=== PATIENT | female | born 1995 | race Caucasian/White ===

== ENCOUNTER 2019-02-10 08:35 | Emergency (ER) | payer OTHER ==
[2019-02-10 08:40] VITALS: BMI 34.0
[2019-02-10] MEDS ORDERED: morphine SULFATE 4 MG/ML VIAL ONE (08:43)
[2019-02-10] MEDS ORDERED: morphine CARPU-JECT 4 MG/1 ML DISP.SYRIN IVPUSH ONE (08:44)
--- NOTE | 2019-02-10 08:46 | PDOC ---
Attending Attestation - Resident Resident Name: Jeniffer Barraza - ED Attending Attestation I have performed the following: I have examined & evaluated the patient, The case was reviewed & discussed with the resident, I agree w/resident's findings & plan, Exceptions are as noted - HPI HPI: 02/10/19 08:45 23y F hx of sleeve gastrectomy, sp medical approx 3 weeks ago presents with complaint sudden onset of sharp, 10/10 R lower abd pain associated iwth nausea approx 1 hr ago - denies any prior history of similar pain, denes any vaginal bleeding, dysuria, hematuria, back pain, cp, sob, feverchills. endorses nausea without vomiting. pt unable to tell me much about her ab or her - states it was 'very early'. presents with R adnexal pain jair tis cramping in nautre, 03/15 - Physicial Exam PE: 02/10/19 09:33 GENERAL: The patient is awake, alert, and fully oriented, in pain, rolling around in discomfort. HEAD: Normocephalic, atraumatic. EYES: extraocular movements intact, sclera anicteric, conjunctiva clear. ENT: Normal voice, Moist mucous membranes. NECK: Normal range of motion, supple LUNGS: Breath sounds equal, clear to auscultation bilaterally. No wheezes, no rhonchi, no rales. HEART: Regular rate and rhythm, normal S1 and S2 without murmur, rub or gallop. ABDOMEN: no rebound/guarding, +focal ttp to RLQ/adnexa, no cva tenderness EXTREMITIES: Normal range of motion, no edema. NEUROLOGICAL: No facial assymetry, Normal speech, PSYCH: Normal mood, normal affect. SKIN: Warm, Dry, normal turgor, - Medical Decision Making 02/10/19 09:36 ddx - ectompic/failed medical ab, appendicitis, kidney stone, gall stone, ovarian cyst will obtain labs morphine for pain fluids will reassess, anticiate imaging 02/10/19 16:26 pts labs reviewed US noted for ovarian cyst, with free fluid, possible ruptured cyst [facility] - pt had IUP documented at 7 weeks - no IUP , likely resolved medical ab - UA suggestive of UTI - pt was dc without abx - called pts cell phone at to see how she was doing and to see her preferred pharmacy for a rx, no response, left a voicemail.
[2019-02-10] MEDS ORDERED: SODIUM CHLORIDE 0.9% 500 ML INFUS.BAG IV ONE (08:59)
--- NOTE | 2019-02-10 09:03 | PDOC ---
History of Present Illness - General Chief Complaint: Pain, Acute Stated Complaint: ABD PAIN Time Seen by Provider: 02/10/19 08:38 - History of Present Illness Initial Comments: Cassidy Cuevas is a 23yo woman with a PMH of laparoscopic sleeve gastrectomy, recent medical 3wks ago who presents with acute onset of right lower abdominal pain about an hour ago. She states that the pain is sharp, constant, non-radiating, and 10/10 in intensity. She has nausea along with the pain. She has never experienced anything similar in the past. Ms Cuevas reports that her recent was "very early on" in the . It was an elective , and she never had any imaging to confirm the location of the . She reports that she had to miss her follow up appointment, and she has not been seen by her senior production supervisor since the . Ms Cuevas denies any vaginal bleeding, vaginal discharge, dysuria, fevers/chills or recent illness. Past History - Past Medical History Allergies/Adverse Reactions: Allergies Allergy/AdvReac Type Severity Reaction Status Date / Time No Known Allergies Allergy Verified 02/10/19 08:37 Home Medications: Ambulatory Orders NK [No Known Home Medication] 02/10/19 COPD: No Other medical history: DENIES - Surgical History Abdominal Surgery: Yes (GASTRIC BYPASS) - Immunization History Immunization Up to Date: Yes - Suicide/Smoking/Psychosocial Hx Smoking History: Current every day smoker Number of Cigarettes Smoked Daily: 10 Information on smoking cessation initiated: No Hx Alcohol Use: Yes Drug/Substance Use Hx: Yes Review of Systems - Review of Systems Comments:: General: No fevers, no chills, no weight or appetite change, no malaise HEENT: No changes in vision, no changes in hearing, no congestion, no sore throat CV: No chest pain, no palpitations, no LE edema Pulm: No SOB, no cough, no wheezing GI: No nausea or vomiting, no change in bowel habits, no melena : No frequency, no urgency, no dysuria. Recent , see HPI Musc: No back pain, no joint swelling, no recent injury Skin: No rash, no lesions, no erythema Endo: No excessive thirst, no heat/cold intolerance Heme: No unusual bruising or bleeding, no swollen glands Neuro: No syncope, no numbness/tingling, no focal weakness Vasc: No claudication Psych: No recent change in mood, no SI or HI *Physical Exam - Vital Signs Last Vital Signs Temp Pulse Resp BP Pulse Ox 97.5 F L 75 22 H 117/89 97 02/10/19 08:37 02/10/19 08:45 02/10/19 08:45 02/10/19 08:45 02/10/19 08:45 - Physical Exam Comments: General: Very uncomfortable, unable to remain still HEENT: Atraumatic, PERRL, EOMI, MMM, voice normal Cards: RRR, no murmur appreciated Pulm: Comfortable on room air, clear to auscultation bilaterally Abd: Significant TTP in RLQ w/ guarding. Minimal TTP on LLQ, suprapubic. Nondistended Ext: Atraumatic. No LE edema. ROM intact. WWP Skin: Normal color, no rashes or lesions Neuro: A&Ox3, CN grossly intact, normal speech, motor/sensory grossly intact and symmetric Psych: Mood appropriate to situation ED Treatment Course - LABORATORY CBC & Chemistry Diagram: 02/10/19 08:45 02/10/19 08:45 - RADIOLOGY Radiology Studies Ordered: Category Date Time Status TRANSVAGINAL ULTRASOUND US [US] Stat Ultrasound 02/10/19 08:59 Ordered - Medications Given in the ED: ED Medications Discontinued Medications Generic Name Dose Route Start Last Admin Trade Name Lolita PRN Reason Stop Dose Admin Morphine Sulfate 4 mg 02/10/19 08:44 02/10/19 08:50 Morphine Injection - IVPUSH 02/10/19 08:45 4 mg ONCE ONE Administration Medical Decision Making - Medical Decision Making 02/10/19 09:00 Cassidy Cuevas is a 23yo woman with a PMH of laparoscopic sleeve gastrectomy, recent medical 3wks ago who presents with acute onset of 10/10, sharp, constant right lower abdominal pain this morning. She endorses nausea but denies any additional symptoms including vaginal bleeding or discharge. - Concerning for unsuccessful medical , ectopic , ruptured ovarian cyst, torsion. Cannot exclude appendicitis, kidney stone. - CBC, CMP, UA, bHCG, coags, T&S - 4mg morphine 02/10/19 09:25 - Labs completed. No concerning abnormalities. bHCG 95 c/w recent - Pain returned following initial relief from morphine. IV acetaminophen ordered , may need additional morphine 02/10/19 09:28 - Pt screaming with pain. 0.5mg dilaudid ordered 02/10/19 10:57 - US completed. Shows two large, complex ovarian cysts (4 x 4 x 3.5cm and 3.5 x 3.2 x 3.2cm); appear hemorrhagic per radiology report. US also notes free right adnexal fluid. Normal endometrium measuring 7mm. Both arterial and venous flow noted. No left adnexal abnormalities - Paging gynecology for recs given positive bHCG and unknown gestation prior to . 02/10/19 11:26 - [facility] where pt had her . Termination was on 01/11/19. Patient had an IUP confirmed on US, estimated 7w5d by CRL (14.09mm) - Pt reporting returning pain currently. Will give toradol now. Most likely d/c home with gynecology follow up 02/10/19 12:25 - Patient feels improved, feels comfortable being discharged home - Discussed home care, return precautions, follow up at length. Patient states understanding and agreement Discussed with home care and follow up Jeniffer Barraza PGY2 *DC/Admit/Observation/Transfer Diagnosis at time of Disposition: Ruptured ovarian cyst - Discharge Dispostion Disposition: HOME Condition at time of disposition: Stable Decision to Admit order: No - Referrals Referrals: Marlon Major MD [Staff Physician] - [facility] [place] [Provider Group] - Patient Instructions Printed Discharge Instructions: DI for Ovarian Cyst Additional Instructions: Discharge Instructions: You were seen in the emergency department for right lower abdominal pain. You were found to have a ruptured ovarian cyst. Your pain should improve with time. You were found to have two additional ovarian cysts on the right ovary. It is possible that these could rupture in the future. Home Care and Follow Up: - You may use over the counter medications as needed for pain at home. 650- 1000mg acetaminophen (Tylenol) or 600mg ibuprofen (Motrin or Advil) can be used every 6-8 hours. If needed for continued pain, these medications may be alternated every 3-4 hours. For example, if you take ibuprofen at 9am, you may take acetaminophen at noon, ibuprofen at 3pm, etc. - It is strongly recommended that you take ibuprofen with food to help prevent stomach irritation. - Try using an ice pack for 20 minutes every hour or a heating pad for additional pain control. - Do not stop moving around. As much as you can tolerate, continue to do light exercise and stretching exercises. Increase your activity level as much as you can tolerate daily. - You have been given contact information for primary care and for gynecology. Call to schedule appointments for follow up within the next week or as soon as possible. - Seek immediate medical care if you have significant worsening of your symptoms , your pain returns, you have vaginal bleeding, you have any lightheadedness or shortness of breath, or you have any other medical emergency. - Post Discharge Activity
[2019-02-10 09:09] LABS: BASO % 0.6 % (0-2.0); EOS % 2.5 % (0-4.5); HEMATOCRIT 43.5 % (32.4-45.2); MCH 32.3 pg (25.7-33.7); MCHC 34.5 g/dl (32.0-36.0); MEAN CELL VOLUME 93.6 fl (80-96); MEAN PLT VOLUME 7.4 fl (7.5-11.1); MONO % 5.8 % (3.8-10.2); NEUT % 67.1 % (42.8-82.8); PLATELET COUNT 264 K/MM3 (134-434); RBC 4.65 M/mm3 (3.60-5.2); RDW 13.2 % (11.6-15.6); WHITE BLOOD COUNT 9.7 K/mm3 (4.0-10.0)
[2019-02-10] MEDS ORDERED: ACETAMINOPHEN 1000 MG/100 ML VIAL (NON FORMULARY) IVPB ONE (09:14)
[2019-02-10] MEDS ORDERED: morphine SULFATE 4 MG/ML VIAL IVPUSH ONE (09:15)
[2019-02-10 09:20] LABS: ALBUMIN 4.1 g/dl (3.4-5.0); BILIRUBIN,TOTAL 0.7 mg/dL (0.2-1); BLOOD UREA NITROGEN 13.3 mg/dL (7-18); CALCIUM 9.2 mg/dL (8.5-10.1); CREATININE 0.8 mg/dL (0.55-1.3); INR 1.03 (0.83-1.09); POTASSIUM 3.4 mmol/L (3.5-5.1); PROTHROMBIN TIME (PATIENT) 12.2 SEC (9.7-13.0); TOT PROT 7.6 g/dl (6.4-8.2)
[2019-02-10] MEDS ORDERED: ACETAMINOPHEN INJECTION 100 ML IVPB ONE (09:24)
[2019-02-10] MEDS ORDERED: HYDROmorphone HCL CARPU-JECT 2 MG/1 ML DISP.SYRIN IVPUSH ONE (09:26)
[2019-02-10] MEDS ORDERED: HYDROmorphone HCl 2 MG/ML VIAL ONE (09:28)
[2019-02-10] MEDS ORDERED: HYDROmorphone HCl 2 MG/ML VIAL IVPUSH ONE (09:45)
[2019-02-10 10:18] LABS: PH,URINE 8.5 (5.0-8.0); URINE APPEARANCE Clear; URINE BILIRUBIN Negative (NEGATIVE); URINE COLOR Yellow; URINE GLUCOSE (UA) Negative (NEGATIVE); URINE KETONE 2+ (NEGATIVE); URINE LEUK ESTERASE 1+ (NEGATIVE); URINE NITRITE Positive (NEGATIVE); URINE PROTEIN Trace (NEGATIVE); URINE UROBILINOGEN 0.2 mg/dL (0.2-1.0)
[2019-02-10 11:21] LABS: EPI CELLS 11.1 /HPF (0-5/HPF); HYALINE CASTS 15.05 /lpf (0-8); URINE BACTERIA 8605.7 /hpf (NEGATIVE); URINE RBC 7.2 /hpf (0-4); URINE WBC 11.3 /hpf (0-5)
[2019-02-10] MEDS ORDERED: KETOROLAC TROMETHAMINE 15 MG/ML VIAL IVPUSH ONE (11:26)
[2019-02-10] MEDS ORDERED: KETOROLAC TROMETHAMINE 15 MG/ML VIAL ONE (11:31)
[2019-02-10 12:10] VITALS: BP 128/67; PULSE 58; TEMP 98
== END 2019-02-10 12:40 | disposition home or self-care (01) ==
LOC: JER 08:35
PROC: 3E033NZ Introduction of Analgesics, Hypnotics, Sedatives into Peripheral Vein, Percutaneous Approach (ICD-10-PCS; principal; 2019-02-10)
PROC: 3E033NZ Introduction of Analgesics, Hypnotics, Sedatives into Peripheral Vein, Percutaneous Approach (ICD-10-PCS; 2019-02-10)
PROC: 3E033NZ Introduction of Analgesics, Hypnotics, Sedatives into Peripheral Vein, Percutaneous Approach (ICD-10-PCS; 2019-02-10)
PROC: 3E0333Z Introduction of Anti-inflammatory into Peripheral Vein, Percutaneous Approach (ICD-10-PCS; 2019-02-10)
DX: N83.201 Unspecified ovarian cyst, right side (principal); N39.0 Urinary tract infection, site not specified; Z98.890 Other specified postprocedural states
CPT/HCPCS: 36415; 76830-TC; 80053; 81003; 84702; 85025; 85610; 85730; 86850; 86900; 86901; 87086; 87186; 96374; 96375; 99283-25; J0131

== ENCOUNTER 2019-05-09 08:27 | Emergency (ER) | payer OTHER ==
[2019-05-09 08:34] VITALS: BP 130/63; PULSE 58; TEMP 98.1; BMI 32.7
--- NOTE | 2019-05-09 08:59 | PDOC ---
*Physical Exam - Vital Signs Last Vital Signs Temp Pulse Resp BP Pulse Ox 98.1 F 58 L 19 130/63 97 05/09/19 08:31 05/09/19 08:31 05/09/19 08:31 05/09/19 08:31 05/09/19 08:31 - Physical Exam 05/09/19 08:58 The patient was examined by [BRENT Loja] under my direct supervision. I personally evaluated the patient. I concur with the above findings and the plan of care. ED Treatment Course - LABORATORY CBC & Chemistry Diagram: 05/09/19 09:57 05/09/19 09:10 Discharge - Discharge Information Problems reviewed: Yes Clinical Impression/Diagnosis: Right sided abdominal pain Condition: Stable Disposition: HOME - Follow up/Referral Referrals: Juan Mccain MD [Primary Care Provider] - 2 Days - Patient Discharge Instructions Patient Printed Discharge Instructions: DI for Abdominal Pain-Adult Additional Instructions: Thank you for choosing [facility]. It was a pleasure taking care of you. There were no acute findings on your imaging Please continue follow-up with your doctor for further evaluation of your symptoms Return to the Emergency Department if your symptoms worsen or persist or have other concerning symptoms. - Post Discharge Activity
[2019-05-09] MEDS ORDERED: ACETAMINOPHEN 1000 MG/100 ML VIAL (NON FORMULARY) IVPB ONE (09:23)
[2019-05-09] MEDS ORDERED: ACETAMINOPHEN INJECTION 100 ML IVPB ONE (09:30)
[2019-05-09] MEDS ORDERED: ONDANSETRON 4 MG/2 ML VIAL IVPUSH ONE (09:58)
[2019-05-09 10:03] LABS: BASO % 0.9 % (0-2.0); EOS % 2.5 % (0-4.5); HEMATOCRIT 43.7 % (32.4-45.2); HEMOGLOBIN 15.2 GM/dL (10.7-15.3); LYMPH % 37.9 % (8-40); MCH 31.5 pg (25.7-33.7); MCHC 34.8 g/dl (32.0-36.0); MEAN CELL VOLUME 90.6 fl (80-96); MEAN PLT VOLUME 7.3 fl (7.5-11.1); MONO % 7.2 % (3.8-10.2); NEUT % 51.5 % (42.8-82.8); PLATELET COUNT 240 K/MM3 (134-434); RBC 4.82 M/mm3 (3.60-5.2); RDW 13.1 % (11.6-15.6); WHITE BLOOD COUNT 7.1 K/mm3 (4.0-10.0)
--- NOTE | 2019-05-09 10:05 | PDOC ---
History of Present Illness - General Chief Complaint: Pain Stated Complaint: ABD. PAIN Time Seen by Provider: 05/09/19 08:53 History Source: Patient Exam Limitations: No Limitations Past History - Past Medical History Allergies/Adverse Reactions: Allergies Allergy/AdvReac Type Severity Reaction Status Date / Time No Known Allergies Allergy Verified 05/09/19 08:33 COPD: No - Surgical History Abdominal Surgery: Yes (GASTRIC SLEEVE) - Immunization History Immunization Up to Date: Yes - Psycho Social/Smoking Cessation Hx Smoking History: Never smoked Number of Cigarettes Smoked Daily: 10 Information on smoking cessation initiated: No Hx Alcohol Use: No Drug/Substance Use Hx: No *Physical Exam - Vital Signs Last Vital Signs Temp Pulse Resp BP Pulse Ox 98.1 F 58 L 19 130/63 99 05/09/19 08:31 05/09/19 08:31 05/09/19 08:31 05/09/19 08:31 05/09/19 09:10 - Physical Exam General Appearance: No: Apparent Distress Respiratory/Chest: positive: Lungs Clear, Normal Breath Sounds. negative: Respiratory Distress Cardiovascular: positive: Regular Rhythm, Regular Rate, S1, S2. negative: Murmur Female Pelvic Exam: positive: adnexal tenderness (along R adnexa) Gastrointestinal/Abdominal: positive: Tender (along RUQ, RLQ), Soft. negative: Distended, Guarding, Rebound, Hernia, Mass Integumentary: positive: Normal Color Neurologic: positive: Alert ED Treatment Course - LABORATORY CBC & Chemistry Diagram: 05/09/19 09:57 05/09/19 09:10 - Medications Given in the ED: ED Medications Discontinued Medications Generic Name Dose Route Start Last Admin Trade Name Lolita PRN Reason Stop Dose Admin Acetaminophen 1,000 mg 05/09/19 09:23 05/09/19 09:30 Ofirmev Injection - IVPB 05/09/19 09:24 1,000 mg ONCE ONE Administration Medical Decision Making - Medical Decision Making 23 y/o F hx of gastric sleeve 2017 presents with R sided abdominal pain x 2 weeks along with nausea; had 2 episodes of emesis yesterday. States pain is similar to the pain she had when she was seen in the ED 02/2019, during which she was found to have R hemorrhagic ovarian cyst. Patient did not f/u with OB/ BUFFING AND SUEDING MACHINE OPERATOR regarding the cyst. Patient was also treated for UTI at that visit. Denies fever, sob, cp, diarrhea, urinary symptoms. Has not tried taking anything for pain. Saw her PCP 2 weeks ago who stated he was going to refer her to psychiatrist (unclear why). LNMP 04/17 R/O Consider cholecystitis, appendicitis, ovarian cyst, ovarian torsion Plan: Labs, IV Tylenol, Zofran, RUQ sono/transvaginal US If sonogram unremarkable, will consider CT A/P 05/09/19 10:02 Labs unremarkable RUQ sono negative pelvic US shows L hemorrhagic cyst with no evidence of torsion Patient reassessed and feeling better Patient noted to be sipping coffee On repeat exam, patient still with RLQ tenderness Will get CT A/P to r/o appendicitis 05/09/19 13:15 CT A/P with no acute findings Patient feeling better on reassessment, tolerating PO stable for dc 05/09/19 14:42 Discharge - Discharge Information Problems reviewed: Yes Clinical Impression/Diagnosis: Right sided abdominal pain Condition: Stable Disposition: HOME - Admission No - Additional Discharge Information Prescription Drug Monitoring Program (I-STOP) results: I-STOP not reviewed - Follow up/Referral Referrals: Juan Mccain MD [Primary Care Provider] - 2 Days - Patient Discharge Instructions Patient Printed Discharge Instructions: DI for Abdominal Pain-Adult Additional Instructions: Thank you for choosing [facility]. It was a pleasure taking care of you. There were no acute findings on your imaging Please continue follow-up with your doctor for further evaluation of your symptoms Return to the Emergency Department if your symptoms worsen or persist or have other concerning symptoms. - Post Discharge Activity
[2019-05-09 10:06] LABS: URINE APPEARANCE CLEAR; URINE BILIRUBIN NEGATIVE (NEGATIVE); URINE COLOR YELLOW; URINE GLUCOSE (UA) NEGATIVE (NEGATIVE); URINE KETONE NEGATIVE (NEGATIVE); URINE LEUK ESTERASE NEGATIVE (NEGATIVE); URINE NITRITE NEGATIVE (NEGATIVE); URINE PROTEIN NEGATIVE (NEGATIVE)
[2019-05-09] MEDS ORDERED: ONDANSETRON 4 MG/2 ML VIAL ONE (10:13)
[2019-05-09 10:29] LABS: ALBUMIN 4.2 g/dl (3.4-5.0); BILIRUBIN,TOTAL 0.6 mg/dL (0.2-1); BLOOD UREA NITROGEN 14.7 mg/dL (7-18); CREATININE 0.6 mg/dL (0.55-1.3); TOT PROT 7.3 g/dl (6.4-8.2)
== END 2019-05-09 14:53 | disposition home or self-care (01) ==
LOC: JER 08:27
PROC: 3E033GC Introduction of Other Therapeutic Substance into Peripheral Vein, Percutaneous Approach (ICD-10-PCS; principal; 2019-05-09)
DX: R10.9 Unspecified abdominal pain (principal); Z98.84 Bariatric surgery status; Z72.0 Tobacco use
CPT/HCPCS: 36415; 74177-TC; 76705-TC; 76830-TC; 80053; 81003; 84703; 85025; 96374; 96375; 99283-25; J0131; Q9967

== ENCOUNTER 2019-07-10 10:18 | Emergency (ER) | payer OTHER ==
[2019-07-10 10:36] VITALS: TEMP 98.1; BMI 30.2
[2019-07-10] MEDS ORDERED: METOCLOPRAMIDE HCL INJECTION 10 MG/2 ML VIAL IVPB ONE (11:17)
[2019-07-10] MEDS ORDERED: SODIUM CHLORIDE 1,000 ML IV STA (11:17)
[2019-07-10] MEDS ORDERED: FAMOTIDINE 20 MG/50 ML IVPB 20 MG/50 ML MG IVPB ONE ×2 (11:17→11:23)
[2019-07-10] MEDS ORDERED: METOCLOPRAMIDE HCL INJECTION 10 MG/2 ML VIAL ONE (11:23)
--- NOTE | 2019-07-10 11:35 | PDOC ---
History of Present Illness - General Chief Complaint: Nausea/Vomiting Stated Complaint: NAUSEA/VOMITING Time Seen by Provider: 07/10/19 10:57 History Source: Patient Exam Limitations: Clinical Condition - History of Present Illness Initial Comments: 07/10/19 11:48 Patient with past medical history of gastric sleeve over 2 years ago and last menstrual period of May 17 presented with complaint of nausea and vomiting in at 8 weeks . Patient reports seeing REPLANTING MACHINE CREWMAN to establish care over a week ago and told her OB about nausea and vomiting but nothing was done for. Patient report unable to keep any food down. Denies abdominal pain, vaginal bleeding, discharge, fever, chills. Patient has not taken anything for symptoms. Patient reported vomiting twice a day. Denies any other symptoms Is this a multiple visit Asthma Patient?: No Timing/Duration: other (2 weeks) Past History - Past Medical History Allergies/Adverse Reactions: Allergies Allergy/AdvReac Type Severity Reaction Status Date / Time No Known Allergies Allergy Verified 07/10/19 10:33 Home Medications: Ambulatory Orders Doxylamine Succinate/Vit B6 [Agustina Stevens 10-10 mg Tablet] 2 each PO HS PRN #30 tablet. 07/10/19 Famotidine [Pepcid -] 40 mg PO DAILY #7 tablet 07/10/19 95/Iron Fum/Folic/Dha [ + Dha Combo Pack] 1 each PO DAILY 07/10 COPD: No - Surgical History Abdominal Surgery: Yes (GASTRIC SLEEVE) - Immunization History Immunization Up to Date: Yes - Psycho Social/Smoking Cessation Hx Smoking History: Never smoked Number of Cigarettes Smoked Daily: 10 Hx Alcohol Use: No Drug/Substance Use Hx: No Review of Systems - Review of Systems Able to Perform ROS?: Yes Is the patient limited Swedish proficient: No Constitutional: No: Chills, Fever, Unintentional Wgt. Loss HEENTM: No: Symptoms Reported, See HPI, Eye Pain, Blurred Vision, Tearing, Recent change in vision, Double Vision, Cataracts, Ear Pain, Ocular Prothesis, Ear Discharge, Nose Pain, Nose Congestion, Tinnitus, Nose Bleeding, Hearing Loss , Throat Pain, Throat Swelling, Mouth Pain, Dental Problems, Difficulty Swallowing, Mouth Swelling, Other Respiratory: No: Symptoms reported, See HPI, Cough, Orthopnea, Shortness of Breath, SOB with Exertion, SOB at Rest, Stridor, Wheezing, Productive cough, Hemoptysis, Other Cardiac (ROS): No: Symptoms Reported, See HPI, Chest Pain, Edema, Irregular Heart Rate, Lightheadedness, Palpitations, Syncope, Chest Tightness, Other ABD/GI: Yes: Nausea, Vomiting. No: Symptoms Reported, See HPI, Abd. Pain w/ defecation, Blood Streaked Bowels, Constipated, Diarrhea, Difficulty Swallowing , Poor Appetite, Rectal Bleeding, Indigestion, Abdominal cramping : No: Symptoms Reported, Burning, Dysuria, Hematuria, Urgency, Other (vaginal bleeding) Musculoskeletal: No: Symptoms Reported All Other Systems: Reviewed and Negative *Physical Exam - Vital Signs Last Vital Signs Temp Pulse Resp BP Pulse Ox 98.1 F 107 H 18 125/82 100 07/10/19 10:34 07/10/19 10:34 07/10/19 10:34 07/10/19 10:34 07/10/19 10:34 - Physical Exam General Appearance: Yes: Nourished, Appropriately Dressed. No: Apparent Distress HEENT: positive: Normal ENT Inspection Neck: positive: Supple Respiratory/Chest: positive: Lungs Clear, Normal Breath Sounds. negative: Respiratory Distress, Accessory Muscle Use Cardiovascular: positive: Regular Rhythm, Regular Rate Gastrointestinal/Abdominal: positive: Normal Bowel Sounds, Flat, Soft. negative : Tender Musculoskeletal: positive: Normal Inspection. negative: CVA Tenderness Extremity: positive: Normal Inspection Integumentary: positive: Normal Color Neurologic: positive: Fully Oriented, Alert, Normal Mood/Affect, Normal Response ED Treatment Course - LABORATORY CBC & Chemistry Diagram: 07/10/19 11:30 Medical Decision Making - Medical Decision Making 07/10/19 11:49 Patient with past medical history of gastric sleeve over 2 years ago and last menstrual period of May 17 presented with complaint of nausea and vomiting in at 8 weeks . Patient reports seeing REPLANTING MACHINE CREWMAN to establish care over a week ago and told her OB about nausea and vomiting but nothing was done for. Patient report unable to keep any food down. Denies abdominal pain, vaginal bleeding, discharge, fever, chills. Patient has not taken anything for symptoms. Patient reported vomiting twice a day. Denies any other symptoms Exam unremarkable with no abdominal tenderness on exam. Patient afebrile. Patient symptoms likely nausea and vomiting . Will do basic blood work CBC and chemistry lab. Patient reported having a whole blood work done a week ago in the OB office with normal result. Will hydrate patient on 1 L lactated Ringer's and IV Reglan for nausea and vomiting. Reassess after hydration labs 07/10/19 12:36 Patient report improvement in symptoms with IV hydration and Reglan. CBC shows no abnormality. Patient stable for discharge on Dyclegis just for nausea and vomiting and Pepcid with REPLANTING MACHINE CREWMAN follow-up Discharge - Discharge Information Problems reviewed: Yes Clinical Impression/Diagnosis: Nausea and vomiting during Condition: Stable Disposition: HOME - Admission No - Additional Discharge Information Prescriptions: Doxylamine Succinate/Vit B6 [Diclegis Dr 10-10 mg Tablet] 2 each PO HS PRN #30 tablet. PRN Reason: vomting Famotidine [Pepcid -] 40 mg PO DAILY #7 tablet - Follow up/Referral Referrals: Juan Mccain MD [Primary Care Provider] - - Patient Discharge Instructions Patient Printed Discharge Instructions: Nausea of (Alternative Therapy) Additional Instructions: Your blood work was normal. Take prescribed medication as needed for nausea and vomiting in . Increase fluid intake. Follow-up with your OB - Post Discharge Activity
[2019-07-10 11:52] LABS: BASO % 0.8 % (0-2.0); EOS % 0.5 % (0-4.5); HEMATOCRIT 42.9 % (32.4-45.2); HEMOGLOBIN 14.8 GM/dL (10.7-15.3); LYMPH % 25.4 % (8-40); MCH 31.6 pg (25.7-33.7); MCHC 34.5 g/dl (32.0-36.0); MEAN CELL VOLUME 91.5 fl (80-96); MEAN PLT VOLUME 7.2 fl (7.5-11.1); MONO % 6.6 % (3.8-10.2); NEUT % 66.7 % (42.8-82.8); PLATELET COUNT 273 K/MM3 (134-434); RBC 4.68 M/mm3 (3.60-5.2); RDW 13.7 % (11.6-15.6); WHITE BLOOD COUNT 8.5 K/mm3 (4.0-10.0)
--- NOTE | 2019-07-10 12:37 | PDOC ---
*Physical Exam - Vital Signs Last Vital Signs Temp Pulse Resp BP Pulse Ox 98.1 F 107 H 18 125/82 100 07/10/19 10:34 07/10/19 10:34 07/10/19 10:34 07/10/19 10:34 07/10/19 10:34 ED Treatment Course - LABORATORY CBC & Chemistry Diagram: 07/10/19 11:30 - ADDITIONAL ORDERS Additional order review: 07/10/19 11:30 RBC 4.68 MCV 91.5 MCHC 34.5 RDW 13.7 MPV 7.2 L Neutrophils % 66.7 D Lymphocytes % 25.4 D Monocytes % 6.6 Eosinophils % 0.5 Basophils % 0.8 - Medications Given in the ED: ED Medications Discontinued Medications Generic Name Dose Route Start Last Admin Trade Name Freq PRN Reason Stop Dose Admin Famotidine/Sodium Chloride 20 mg in 50 mls @ 100 mls/hr 07/10/19 11:17 11:44 Pepcid 20 Mg Premixed Ivpb - IVPB 07/10/19 11:46 100 mls/hr ONCE ONE Administration Sodium Chloride 1,000 mls @ 1,000 mls/hr 07/10/19 11:17 07/10/19 11:44 Normal Saline - IV 07/10/19 12:16 1,000 mls/hr ASDIR STA Administration Metoclopramide HCl 10 mg 07/10/19 11:17 07/10/19 11:44 Reglan Injection - IVPB 07/10/19 11:18 10 mg ONCE ONE Administration Medical Decision Making - Medical Decision Making 07/10/19 12:37 The patient was seen and evaluated in conjunction with BRENT Acuna under my direct supervision, ancillary studies were reviewed. I independently interviewed and evaluated the patient and I agree with the plan as outlined by BRENT Acuna. pt is a 23yF hx of gastric sleeve at 8 weeks gesatation presents with nausea/ vomiting without associated abd pain, vag bleeding or discharge, f/c, back pain , leg swelling, headache. exam unremarkble, pt non toxic, abd soft. initial vitals slightly tachy. pt treated with fluids, reglan. cbc unremarkble. will dc the pt without outpatient fu Discharge - Discharge Information Problems reviewed: Yes Clinical Impression/Diagnosis: Nausea and vomiting during Condition: Stable Disposition: HOME - Additional Discharge Information Prescriptions: Doxylamine Succinate/Vit B6 [Agustina Stevens 10-10 mg Tablet] 2 each PO HS PRN #30 tablet.dr PRN Reason: vomting Famotidine [Pepcid -] 40 mg PO DAILY #7 tablet Ondansetron [Zofran *Odt*] 4 mg SL Q8H PRN #21 od.tablet PRN Reason: nausea - Follow up/Referral Referrals: Juan Mccain MD [Primary Care Provider] - - Patient Discharge Instructions Patient Printed Discharge Instructions: Nausea of (Alternative Therapy) Additional Instructions: Your blood work was normal. Take prescribed medication as needed for nausea and vomiting in . Increase fluid intake. Follow-up with your OB - Post Discharge Activity
[2019-07-10 12:44] VITALS: BP 118/68; PULSE 75
== END 2019-07-10 12:54 | disposition home or self-care (01) ==
LOC: JER 10:18
PROC: 3E033GC Introduction of Other Therapeutic Substance into Peripheral Vein, Percutaneous Approach (ICD-10-PCS; principal; 2019-07-10)
PROC: 3E033GC Introduction of Other Therapeutic Substance into Peripheral Vein, Percutaneous Approach (ICD-10-PCS; 2019-07-10)
DX: O26.891 Other specified pregnancy related conditions, first trimester (principal); O21.9 Vomiting of pregnancy, unspecified; Z3A.08 8 weeks gestation of pregnancy
CPT/HCPCS: 36415; 84702; 85025; 96365; 96375; 99283-25; J7030